=== PATIENT | male | born 1960 | race Caucasian/White ===

== ENCOUNTER 2024-10-21 13:45 | Emergency (ER) | payer OTHER, MEDICAID, SELFPAY ==
[2024-10-21] VITALS (13 sets, daily range): BP systolic 104–160; BP diastolic 65–87; PULSE 73–122; RESP 17–39; TEMP 36.5; O2SAT 92–100; BMI 30.8
--- NOTE | 2024-10-21 13:46 | EKG_ITS ---
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
--- NOTE | 2024-10-21 13:54 | DI.RAD.S_ITS ---
PROCEDURE: XR CHEST 1V INDICATIONS: Chest Pain TECHNIQUE: One view of the chest was acquired. COMPARISON: None. FINDINGS: Surgical changes and devices: None. Lungs and pleura: There is a small to moderate right-sided pleural effusion. Overlying atelectasis can be seen. No pneumothorax is seen. Mediastinum: The cardiac contours are moderately enlarged. The aorta demonstrates calcification and tortuosity. Bones and chest wall: No suspicious bony lesions. Age-appropriate bony degenerative changes are seen. Overlying soft tissues appear unremarkable. IMPRESSION: Small to moderate right-sided pleural effusion. Moderate cardiomegaly. Dictated by: Rios Palacios M.D. on 10/21/2024 at 13:22 Approved by: Rios Palacios M.D. on 10/21/2024 at 13:23
[2024-10-21 14:06] LABS: Add Manual Diff / Slide Review NO; Hematocrit 46.5 % (41-53); Hemoglobin 15.6 g/dL (13.5-17.5); Lymphocytes Absolute Auto 800 /uL (1100-4500); Mean Corpuscular HGB Conc 33.6 % (30-36); Mean Corpuscular Hemoglobin 33.1 PG (26-34); Mean Corpuscular Volume 98.5 fL (80-100); Platelet Count 123 X10^3/uL (150-400)
--- NOTE | 2024-10-21 14:06 | ED_ITS ---
HPI - SOB/Dyspnea General Chief Complaint: Shortness of Breath/Dyspnea Stated Complaint: SOB Time Seen by Provider: 10/21/24 13:48 Source: patient Mode of arrival: EMS Limitations: no limitations History of Present Illness HPI Narrative: 64-year-old male [place] in via [place] that he had neuropathy in his legs gave out unable to stand up and called EMS came in to be evaluated. Patient has never been told a fast irregular heart rate before or and denies loc, head or neck trauma. Patient denies chest pain, shortness of breath, but does endorse chronic leg swelling that is going on for quite some time now. Other than what is stated 14 point review of system is negative. Related Data Allergies Allergy/AdvReac Type Severity Reaction Status Date / Time No Known Allergies Allergy Verified 10/21/24 13:47 Review of Systems Review of Systems ROS Unobtainable: All systems reviewed & are unremarkable except as noted in HPI and below Patient History Social History Smoking Status: Current every day smoker Smoking Status: Current every day smoker tobacco type: cigarettes Exam Narrative Exam Narrative: GENERAL: [64) year old patient appears stated age. Well-developed patient, in mild distress. HEAD: Atraumatic. Normocephalic. EYES: Pupils equal round and reactive. Extraocular motions intact. No scleral icterus. No injection or drainage. ENT: Nose without bleeding, purulent drainage. Throat without erythema, tonsillar hypertrophy or exudate. Airway patent. NECK: Trachea midline. Non tender CARDIOVASCULAR: Tachycardic irregularly irregular rhythm without murmurs, gallops, or rubs. RESPIRATORY: Crackles R base and decreased breath sounds b/l. GASTROINTESTINAL: Abdomen soft, non-tender, nondistended. EXTREMITIES: +2 pitting edema b/l l/e BACK: Nontender without deformity or crepitance. No flank tenderness. NEURO: AOx3. 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 Stat 10/21/24 13:54 XR chest 1V Stat EKG-12 Lead Stat 10/21/24 13:55 Complete Blood Count AUTO DIFF Stat Comprehensive Metabolic Panel Stat Lipase Stat Magnesium Stat NT-proBNP (BNP-Adult 18+) Stat PTT Partial Thromboplastin Rahul Stat Prothrombin Time INR Stat Respiratory Panel (Film Array) Stat Troponin & CK Cardiac Panel Stat 10/21/24 14:06 CT angio chest PE protocol Stat 10/21/24 14:11 VBG [Venous Blood Gas] STAT 10/21/24 14:21 Venous Blood Gas Routine 10/21/24 15:48 Troponin I Stat Discontinued Medications Aspirin (Aspirin 81 Mg Chew Tab) 324 mg PO NOW ONE Stop: 10/21/24 13:55 Last Admin: 10/21/24 14:07 Dose: 324 mg Documented By: CHUYITA Furosemide (Furosemide 40 Mg/4 Ml Vial) 40 mg IV NOW ONE Stop: 10/21/24 14:06 Last Admin: 10/21/24 14:08 Dose: 40 mg Documented By: CHUYITA POTASSIUM CHLORIDE IN WATER (Potassium Cl 10 Meq/100 Ml Katina) 10 meq in 100 mls @ 100 mls/hr IV Q1H DIETER Stop: 10/21/24 18:59 Last Admin: 10/21/24 18:36 Dose: 100 mls/hr Documented By: Infusion: 10/21/24 18:35 Dose: Infused Documented By: Admin: 10/21/24 17:18 Dose: 100 mls/hr Documented By: Infusion: 10/21/24 17:18 Dose: Infused Documented By: Admin: 10/21/24 16:24 Dose: 100 mls/hr Documented By: Infusion: 10/21/24 16:24 Dose: Infused Documented By: Admin: 10/21/24 15:04 Dose: 100 mls/hr Documented By: CHUYITA Metoprolol Tartrate (Metoprolol Tartrate 5 Mg/5 Ml Inj) 5 mg IV NOW ONE Stop: 10/21/24 14:06 Last Admin: 10/21/24 14:08 Dose: 5 mg Documented By: CHUYITA Vital Signs Vital signs: Vital Signs - 8 hr 10/21/24 15:00 10/21/24 15:08 10/21/24 15:08 Pulse Rate 80 80 Respiratory Rate 35 H 39 H Blood Pressure 120/82 Pulse Oximetry 92 94 Oxygen Delivery Method Oxygen Flow Rate 10/21/24 15:30 10/21/24 15:30 10/21/24 16:00 Pulse Rate 85 85 Respiratory Rate 34 H 35 H Blood Pressure 104/73 Pulse Oximetry 100 95 Oxygen Delivery Method Nasal Cannula Nasal Cannula Oxygen Flow Rate 1 1 10/21/24 16:00 10/21/24 16:30 10/21/24 16:30 Pulse Rate 86 Respiratory Rate 34 H Blood Pressure 145/87 H 114/83 Pulse Oximetry 95 Oxygen Delivery Method Oxygen Flow Rate 10/21/24 17:00 10/21/24 17:00 10/21/24 17:31 Pulse Rate 82 82 Respiratory Rate 37 H 17 Blood Pressure 137/87 160/83 H Pulse Oximetry 96 96 Oxygen Delivery Method Nasal Cannula Oxygen Flow Rate 1 10/21/24 18:00 10/21/24 18:31 10/21/24 19:01 Pulse Rate 81 93 H 85 Respiratory Rate 18 22 20 Blood Pressure 135/87 120/65 136/75 Pulse Oximetry 94 94 98 Oxygen Delivery Method Nasal Cannula Nasal Cannula Oxygen Flow Rate 1.5 1.5 MDM - SOB/Dyspnea Lab Data 10/21/24 13:55 10/21/24 13:55 Labs: Lab Results 10/21/24 10/21/24 10/21/24 Range/Units 13:55 14:21 15:48 WBC 8.4 (4.5-11.0) X10^3/uL RBC 4.72 (4.5-5.9) X10^6/uL Hgb 15.6 (13.5-17.5) g/dL Hct 46.5 (41-53) % MCV 98.5 (80-100) fL MCH 33.1 (26-34) PG MCHC 33.6 (30-36) % RDW 15.5 H (11.6-14.8) % Plt Count 123 L (150-400) X10^3/uL Neut % (Auto) 79.5 H (50-75) % Lymph % (Auto) 8.9 L (25-40) % Jack % (Auto) 10.8 (3-14) % Eos % (Auto) 0.3 L (2-4) % Baso % (Auto) 0.5 (0-2) % Neut # (Auto) 6700 (5637-1532) /uL Lymph # (Auto) 800 L (6874-2829) /uL Jack # (Auto) 900 (0-900) /uL Eos # (Auto) 0 (0-450) /uL Baso # (Auto) 0 (0-100) /uL PT 13.4 H (9.4-12.5) SECONDS INR 1.2 (0.9-1.3) APTT 38 H (25.1-36.5) SECONDS VBG pH 7.36 (7.33-7.43) VBG pCO2 44.5 L (45-50) mmHg VBG pO2 57 H (35-45) mmHg VBG HCO3 25 (24-28) mmol/L VBG Total CO2 24 (24-29) mmol/L VBG O2 Saturation 88 H (70-75) % VBG Base Excess -0.9 L (0-4) mmol/L FiO2 % 21.0 % % Sodium 140 (137-145) mmol/L Potassium 3.1 L (3.4-5.1) mmol/L Chloride 106 (98-107) mmol/L Carbon Dioxide 22 (22-32) mmol/L BUN 28 H (9-20) mg/dL Creatinine 1.13 (0.66-1.25) mg/dL Estimated GFR > 60 (>60) mL/min BUN/Creatinine Ratio 24.8 H (6-22) Glucose 121 H (70-99) mg/dL Calcium 8.8 (8.4-10.2) mg/dL Magnesium 1.7 (1.6-2.3) mg/dL Total Bilirubin 1.3 (0.2-1.3) mg/dL AST 33 (17-59) IU/L ALT 25 (<50) IU/L Alkaline Phosphatase 79 (38-126) U/L Total Creatine Kinase 45 L (55-170) U/L Troponin I 0.063 H 0.060 H (0.01-0.034) ng/mL NT-Pro-B Natriuret Pep 87532 H (<125) pg/mL Total Protein 6.8 (6.3-8.2) g/dL Albumin 3.5 (3.5-5.0) g/dL Globulin 3.3 (1.7-4.1) g/dL Albumin/Globulin Ratio 1.1 (1.0-2.8) Lipase 59 (23-300) U/L Chlamy pneumoniae PCR Not detected (Not Detect) Adenovirus (PCR) Not detected (Not Detect) B. pertussis DNA (PCR) Not detected (Not Detect) B.parapertussis DNA PCR Not detected (Not Detecte) Coronavirus OC43 (PCR) Not detected (Not Detect) Coronavirus HKU1 (PCR) Not detected (Not Detect) Coronavirus 229E (PCR) Not detected (Not Detect) SARS-CoV-2 (PCR) Not detected (Not Detecte) Coronavirus NL63 (PCR) Not detected (Not Detect) Human Metapneumovir PCR Not detected (Not Detect) Influenza Type A (PCR) Not detected (Not Detect) Influenza Type B (PCR) Not detected (Not Detect) M. pneumoniae (PCR) Not detected (Not Detect) Parainfluenza 1 (PCR) Not detected (Not Detect) Parainfluenza 2 (PCR) Not detected (Not Detect) Parainfluenza 3 (PCR) Not detected (Not Detect) Parainfluenza 4 (PCR) Not detected (Not Detect) RSV (PCR) Not detected (Not Detect) Entero/Rhino (PCR) Not detected (Not Detect) Point of Care Testing Glucose POC 124 Imaging Data Chest x-ray: Radiologist's Impression: PROCEDURE: XR CHEST 1V INDICATIONS: Chest Pain TECHNIQUE: One view of the chest was acquired. COMPARISON: None. FINDINGS: Surgical changes and devices: None. Lungs and pleura: There is a small to moderate right-sided pleural effusion. Overlying atelectasis can be seen. No pneumothorax is seen. Mediastinum: The cardiac contours are moderately enlarged. The aorta demonstrates calcification and tortuosity. Bones and chest wall: No suspicious bony lesions. Age-appropriate bony degenerative changes are seen. Overlying soft tissues appear unremarkable. IMPRESSION: Small to moderate right-sided pleural effusion. Moderate cardiomegaly. CT scan - chest: Radiologist's Impression: [address] [address] [address] Scan Report Signed Patient: Harish Howard MR#: [id number] : 1960 Acct:[id number] Age/Sex: 64 / M Date of Service: 10/21/24 Loc: ED Accession Number: [id number] Procedure: CT angio chest PE protocol Ordering Provider: Harish Ramos D.O. PROCEDURE: CT ANGIO CHEST PE PROTOCOL INDICATIONS: chest pain/sob/galindo/leg swelling/tachy TECHNIQUE: After the administration of intravenous contrast, 2 mm thick sections acquired from the pulmonary apices to the posterior costophrenic angles. 3-dimensional maximum intensity projection (MIP) coronal and sagittal reformats were then acquired through the thorax. For radiation dose reduction, the following was used: automated exposure control, adjustment of mA and/or kV according to patient size. COMPARISON: [facility], CR, XR CHEST 1V, 10/21/2024, 13:52. FINDINGS: Image quality: Limited by bolus timing. Pulmonary arteries: Pulmonary arteries are normal in size. No definite filling defects are seen within the pulmonary arteries. However, there is prominent artifact seen with mixed seen defects. The pulmonary arteries of both inferior lobes are poorly opacified. Lower Neck: No enlarged lymph nodes. Thyroid: No thyroid nodules which require sonographic follow up, per consensus guidelines. Axillae: No enlarged lymph nodes. Chest Wall: Unremarkable. Bones: Age-appropriate bony degenerative changes are seen. Accentuated thoracic kyphosis is seen. Lungs and Pleura: There is a moderate right-sided pleural effusion seen, with overlying atelectasis. Heart: Moderate to prominent coronary artery calcification can be seen. Heart size is normal. There is a moderate to large pericardial effusion. Thoracic Vessels: No aortic aneurysm. Mediastinum and Shyanne: No enlarged lymph nodes. Esophagus: No wall thickening. No hiatal hernia. Upper Abdomen: Visualized upper abdomen solid organs and bowel loops appear normal. IMPRESSION: No definite pulmonary embolus. However, there is significant Fiordaliza defect and the inferior lobe pulmonary arteries are not well opacified. There is a moderate to large pericardial effusion. There is a moderate right-sided pleural effusion. Overlying atelectasis is seen. Moderate to prominent coronary artery calcification can be seen. ECG Data Interpretation: Sinus Tach with PAC HR 120 SC 192 QRS [address]-twave change MDM Narrative Medical decision making narrative: Vital signs, nurse triage note, medication list, previous ER visits, and all imaging studies reviewed. Patient given Lasix 40 mg IV x1, metoprolol 5 mg IV x1, K rider 40 mEq IV. Case discussed with Dr. Missy jaramillo md who has advised pt be transferred to [facility] and to be consulted and admit to hospitalist service. Case discussed with Dr. Vizcarra who has graciously accepted the patient for inpatient admission. Differential diagnosis PE AFib a flutter SVT STEMI NSTEMI CHF Discharge Plan Departure Patient Disposition: [facility] Clinical Impression: Acute pericardial effusion CHF (congestive heart failure) Qualifiers: Heart failure type: combined systolic and diastolic Heart failure chronicity: a cute Qualified Code(s): I50.41 - Acute combined systolic (congestive) and diastolic (congestive) heart failure
[2024-10-21] MEDS: ASPIRIN 81 MG CHEW TAB 324 MG PO (14:07)
[2024-10-21] MEDS: METOPROLOL TARTRATE 5 MG/5 ML INJ IV (14:08)
[2024-10-21] MEDS: FUROSEMIDE 40 MG/4 ML VIAL IV (14:08)
[2024-10-21 14:16] LABS: INR 1.2 (0.9-1.3); Prothrombin Time 13.4 SECONDS (9.4-12.5)
[2024-10-21 14:19] LABS: PTT Partial Thromboplastin Tim 38 SECONDS (25.1-36.5)
[2024-10-21 14:21] LABS: Alanine Aminotransferase 25 IU/L (<50); Albumin 3.5 g/dL (3.5-5.0); Albumin Globulin Ratio 1.1 (1.0-2.8); Alkaline Phosphatase 79 U/L (38-126); Blood Urea Nitrogen 28 mg/dL (9-20); Calcium 8.8 mg/dL (8.4-10.2); Carbon Dioxide 22 mmol/L (22-32); Chloride 106 mmol/L (98-107); Creatine Kinase 45 U/L (55-170); Estimated Glomerular Filt Rate > 60 mL/min (>60); Globulin 3.3 g/dL (1.7-4.1); Glucose 121 mg/dL (70-99); HEMOLYSIS 32 (0-50); Lipase 59 U/L (23-300); Magnesium 1.7 mg/dL (1.6-2.3); Potassium 3.1 mmol/L (3.4-5.1); Sodium 140 mmol/L (137-145); Total Protein 6.8 g/dL (6.3-8.2)
[2024-10-21 14:27] LABS: Base Excess VBG -0.9 mmol/L (0-4); HCO3 VBG 25 mmol/L (24-28); Oxygen Saturation VBG 88 % (70-75); PCO2 VBG 44.5 mmHg (45-50); PO2 VBG 57 mmHg (35-45); Total CO2 VBG 24 mmol/L (24-29); pH VBG 7.36 (7.33-7.43)
--- NOTE | 2024-10-21 14:30 | EKG_ITS ---
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
[2024-10-21 14:32] LABS: Troponin I 0.063 ng/mL (0.01-0.034)
[2024-10-21 14:46] LABS: NT-proBNP (BNP-Adult 18+) 44300 pg/mL (<125)
[2024-10-21 15:04] LABS: Coronavirus NL 63 Not Detected (Not Detect); SARS- CoV-2 Not Detected (Not Detecte)
[2024-10-21] MEDS: POTASSIUM CHLORIDE IN WATER 10 MEQ/100 ML PIGGYBACK 100 MEQ IV ×4 (15:04→18:36)
[2024-10-21 16:19] LABS: Troponin I 0.060 ng/mL (0.01-0.034)
== END 2024-10-21 19:26 | disposition short-term general hospital (02) ==
PROVIDERS: Family Medicine; Emergency Provider Student in an Organized Health Care Education/Training Program
DX: I31.39 Other pericardial effusion (noninflammatory) (principal); I50.41 Acute combined systolic (congestive) and diastolic (congestive) heart failure; R60.0 Localized edema; R06.02 Shortness of breath; R07.9 Chest pain, unspecified
CPT/HCPCS: 36415; 71045; 71275; 80053; 82550; 82805; 82962; 83690; 83735; 83880; 84484; 85025; 85610; 85730; 87633; 93005; 96365; 96366; 96375; 99285; J1938; Q9967